=== PATIENT | female | born 1995 | race Caucasian/White ===

== ENCOUNTER 2020-11-30 07:35 | Outpatient (CLI) | payer OTHER, SELFPAY ==
--- NOTE | ~2020-11-30 | US_ITS ---
EXAMINATION: US abdomen complete EXAM DATE: 11/30/2020 08:16 INDICATION: R10.9 - Unspecified abdominal pain, diarrhea. TECHNIQUE: Multiple grayscale and Doppler images of the complete abdomen were obtained (by a technolo gist who performed the scan) and subsequently reviewed. There is no prior study for comparison. FINDINGS: The abdominal aorta is normal in caliber. Visualized portion IVC is patent. The pancreatic head a nd body are normal in appearance. The pancreatic tail is not visualized. The liver has normal echogenicity and contour. There are no focal liver lesions identified. There is no evidence of intrahepatic biliary duct dilation. Portal venous flow was seen in the hepatopedal , normal direction and has normal Doppler waveform. Common bile duct measures 4 mm, which is normal. The gallbladder wall is normal in thickness, with ex pected amount of distention. No sonographic evidence of pericholecystic fluid. There is no cholelit hiases. Technologist performing exam reports patient did not demonstrate sonographic Regan's sign. Please note that this sign is less reliable in patients who have received pain medication. Right kidney: There is normal contour and echogenicity. It measures 11.0 x 4.1 x 4.2 centimeters. There are no focal renal lesions identified. There is no hydronephrosis. Left kidney: There is normal contour and echogenicity. It measures 12.0 x 5.0 x 4.6 centimeters. T here are no focal renal lesions identified. There is no hydronephrosis. The spleen measures 11.1 centimeters and is morphologically normal. IMPRESSION: 1. Unremarkable complete abdominal ultrasound exam. Reviewed, dictated and finalized at location A. E DRIVER COIN MACHINES
[2020-11-30 07:54] LABS: Basophils Absolute Auto 0.1 K/mm3 (0.0-0.1); Basophils Percent Auto 1.2 % (0.2-1.2); Eosinophils Absolute Auto 0.2 K/mm3 (0-0.3); Eosinophils Percent Auto 3.8 % (0-4.4); Hematocrit 39.8 % (37.0-47.0); Hemoglobin 13.6 g/dL (12.0-15.0); Immature Granulocyte Absolute 0.01 K/mm3 (0.00-0.031); Immature Granulocyte Percent A 0.2 % (0-0.5); Lymphocytes Absolute Auto 1.84 K/mm3 (0.9-3.2); Lymphocytes Percent Auto 36.4 % (18.3-44.2); Mean Corpuscular HGB Conc 34.2 g/dl (32-36); Mean Corpuscular Hemoglobin 30.7 pg (26-34); Mean Corpuscular Volume 89.8 fl (80-100); Mean Platelet Volume 10.9 fl (7.4-10.4); Monocytes Absolute Auto 0.5 K/mm3 (0.1-0.6); Monocytes Percent Auto 9.5 % (2.6-8.5); Neutrophils Absolute Auto 2.5 K/mm3 (1.3-6.7); Neutrophils Percent Auto 48.9 % (45.5-73.1); Platelet Count Result 204 k/mm3 (150-375); Red Blood Count 4.43 M/mm3 (4.2-5.4); Red Cell Distribution Width 12.6 % (11.5-14.5); White Blood Count 5.1 K/mm3 (4.5-10.0)
== END 2020-11-30 07:36 | disposition home or self-care (01) ==
PROVIDERS: PCP Family Medicine; Visit Provider Nurse Practitioner Family
DX: R10.9 Unspecified abdominal pain (principal); R11.0 Nausea; R19.7 Diarrhea, unspecified
CPT/HCPCS: 36415; 76700; 85025

== ENCOUNTER 2023-06-17 22:56 | Emergency (ER) | payer BC, SELFPAY ==
--- NOTE | ~2023-06-17 | XR_ITS ---
XR elbow RT min 3V DATE: 06/18/2023 02:47 INDICATION: Postoperative reduction TECHNIQUE: 3 views COMPARISON: 06/17/2023 pre-reduction right elbow FINDINGS: There is reduction of posterior dislocation at the elbow joint. No fracture or dislocation is evident. There is elevation of the posterior fat pads consistent with joint effusion. IMPRESSION: Reduction of posterior dislocation Elbow joint effusion Reviewed, dictated and finalized at location A.
--- NOTE | ~2023-06-17 | XR_ITS ---
XR elbow RT 2V DATE: 06/17/2023 23:56 INDICATION: Fall. Elbow swelling, deformity TECHNIQUE: AP and lateral views COMPARISON: None FINDINGS: There is posterior dislocation of the elbow joint. There is elevation of the anterior and p osterior fat pads consistent with joint effusion. No apparent fracture is evident. IMPRESSION: Posterior elbow joint dislocation and elbow joint effusion Reviewed, dictated and finalized at location A.
[2023-06-17 23:01] VITALS: BP 123/94; PULSE 97; RESP 17; TEMP 36.9; O2SAT 97
[2023-06-18] VITALS (19 sets, daily range): BP systolic 102–131; BP diastolic 74–86; PULSE 79–100; RESP 8–20; O2SAT 95–100
[2023-06-18] MEDS: ONDANSETRON INJ 4 MG/2 ML VIAL IV PUSH (01:08)
[2023-06-18] MEDS: HYDROmorphone HCL INJ (*CRX) 1 MG/ML SYR IV PUSH (01:09)
--- NOTE | 2023-06-18 01:24 | ED.UPPEXIN ---
HPI - Extremity Injury (Upper) General Chief Complaint: Extremity Injury, Upper <ORQUIDEA Obrien Last Filed: 06/18/23 03:43> Stated Complaint: R elbow pain d/t fall <ORQUIDEA Obrien Last Filed: 06/18/23 03:43> Time Seen by Provider: 06/18/23 00:39 <ORQUIDEA Obrien Last Filed: 06/18/23 03:43> Source: patient <ORQUIDEA Obrien Last Filed: 06/18/23 03:43> Mode of arrival: ambulatory <ORQUIDEA Obrien Last Filed: 06/18/23 03:43> Limitations: no limitations <ORQUIDEA Obrien Last Filed: 06/18/23 03:43> History of Present Illness HPI narrative: Patient is a 28-year-old female who presents to the ED with report of right elbow pain. Patient reports she tripped and fell in her friend's yard this evening and landed with her right arm outstretched. She has had a few drinks tonight. She complains of pain to her right elbow. Unable to move elbow. Denies any numbness or tingling. No wrist or shoulder pain. Patient did not hit her head or lose consciousness. 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 <ORQUIDEA Obrien Last Filed: 06/18/23 03:43> Related Data Home Medications: Home Medications Medication Instructions Recorded Confirmed cetirizine 10 mg capsule (Zyrtec) 10 mg PO DAILY PRN 05/03/23 05/03/23 <ORQUIDEA Obrien Last Filed: 06/18/23 03:43> Allergies/Adverse Reactions: Allergies Allergy/AdvReac Type Severity Reaction Status Date / Time amoxicillin Allergy Mild Rash Verified 05/03/23 09:09 cefuroxime Allergy Mild Rash Verified 05/03/23 09:09 Penicillins Allergy Mild Rash Verified 05/03/23 09:09 <Toyin Cody PA-C - Last Filed: 06/18/23 03:43> Review of Systems Review of Systems: CONSTITUTIONAL: Denies fever, chills, or sweats. MUSCULOSKELETAL: See HPI. NEUROLOGIC: Denies HI, LOC, tingling, numbness, or weakness. <Toyin Cody PA-C - Last Filed: 06/18/23 03:43> All systems reviewed & are unremarkable except as noted in HPI and below <Toyin Cody PA-C - Last Filed: 06/18/23 03:43> [facility] Past Medical History Medical History: Medical History Anxiety BMI 26.0-26.9,adult BMI 30.0-30.9,adult COVID-19 DVT (deep vein thrombosis) in (03/07/23) Encounter for screening examination for sexually transmitted disease Pulmonary emboli (03/07/23) <Toyin Cody PA-C - Last Filed: 06/18/23 03:43> Surgical History Surgical History: Surgical History History of placement of ear tubes History of tonsillectomy (09/21/18) History of wisdom tooth extraction <Toyin Cody PA-C - Last Filed: 06/18/23 03:43> Family History Family History: Family History Father History of Holter monitoring Heart disease Mother No problems noted. Sibling No problems noted. Other Diabetes mellitus paternal aunt Breast cancer paternal aunt Grandparent Malignant neoplasm of lung paternal grandfather paternal grandmother Congestive heart failure maternal grandfather <Toyin Cody PA-C - Last Filed: 06/18/23 03:43> Social History Social History: Social History Smoking status: Never smoker Second hand tobacco smoke exposure: No Alcohol intake: current Drinks per week: 2 Alcohol use details: 6 per month Substance use: never Substance use type: does not use Living arrangements: other Additional living arrangements comments: single Occupation/Education: occupation Additional occupation/education comments: [employer]
[2023-06-18] MEDS: PROPOFOL IV EMULSION 200 MG/20 ML VIAL 100 MG IV PUSH (02:05)
[2023-06-18] MEDS: SODIUM CHLORIDE 0.9% IV 1,000 ML 999 ML (02:23)
[2023-06-18] MEDS: ACETAMINOPHEN 500 MG TABLET 1000 MG PO (03:30)
[2023-06-18] MEDS: oxyCODONE HCL (*CRX) 5 MG TAB IR PO (03:31)
== END 2023-06-18 03:45 | disposition home or self-care (01) ==
PROVIDERS: Emergency Provider Physician Assistant; PCP Family Medicine
DX: S53.104A Unspecified dislocation of right ulnohumeral joint, initial encounter (principal); S52.124A Nondisplaced fracture of head of right radius, initial encounter for closed fracture; F41.9 Anxiety disorder, unspecified; W01.0XXA Fall on same level from slipping, tripping and stumbling without subsequent striking against object, initial encounter
CPT/HCPCS: 24600; 73070; 73080; 96374; 96375; 99285; A4565; A9270; J1170; J2405; J2704; J7030

== ENCOUNTER 2023-07-18 15:45 | Outpatient (CLI) | payer BC, SELFPAY ==
[2023-07-18 16:10] LABS: Basophils Percent Auto 0.2 % (0.2-1.2); Hematocrit 44.4 % (37.0-47.0); Hemoglobin 14.7 g/dL (12.0-15.0); Immature Granulocyte Absolute 0.02 K/mm3 (0.00-0.031); Immature Granulocyte Percent A 0.2 % (0-0.5); Lymphocytes Absolute Auto 1.23 K/mm3 (0.9-3.2); Lymphocytes Percent Auto 14.9 % (18.3-44.2); Mean Corpuscular HGB Conc 33.1 g/dl (32-36); Mean Corpuscular Hemoglobin 30.4 pg (26-34); Mean Corpuscular Volume 91.7 fl (80-100); Mean Platelet Volume 10.5 fl (7.4-10.4); Monocytes Absolute Auto 0.3 K/mm3 (0.1-0.6); Neutrophils Absolute Auto 6.7 K/mm3 (1.3-6.7); Neutrophils Percent Auto 81.7 % (45.5-73.1); Platelet Count Result 245 k/mm3 (150-375); Red Blood Count 4.84 M/mm3 (4.2-5.4); Red Cell Distribution Width 12.5 % (11.5-14.5); White Blood Count 8.3 K/mm3 (4.5-10.0)
[2023-07-18 17:48] LABS: Alanine Aminotransferase 27 U/L (6-35); Albumin Level 4.8 g/dL (3.5-5.1); Alkaline Phosphatase 57 U/L (38-126); Anion Gap 11 mmol/L (8-16); Aspartate Amino Transferase 26 U/L (14-36); Bilirubin,Total 0.4 mg/dL (0.2-1.3); Blood Urea Nitrogen 14 mg/dL (7-17); Calcium 8.9 mg/dL (8.4-10.2); Carbon Dioxide 25 mmol/L (22-30); Chloride 103 mmol/L (98-107); Estimated Glomerular Filt Rate > 60; Glucose 119 mg/dL (65-110); Potassium 3.8 mmol/L (3.4-5.0); Sodium 139 mmol/L (137-145)
[2023-07-21 18:51] LABS: Anti-Thrombin III Antigen 94 % normal (80-120)
[2023-07-23 14:43] LABS: Anti Cardio Antibody IgM 3.8 MPL-U/mL (<20.0); Anti Cardiolipin Antibody IgA <2.0 APL-U/mL (<20.0); Anti Cardiolipin Antibody IgG <2.0 GPL-U/mL (<20.0)
[2023-07-25 15:39] LABS: Lupus dRVVT Confirmation Negative (Negative); Lupus dRVVT Screen 50 sec (<=45); PTT-LA Screen 40 sec (<=40)
== END 2023-07-18 15:46 | disposition home or self-care (01) ==
LOC: ANHLAB 15:47
PROVIDERS: PCP Family Medicine; Visit Provider Internal Medicine Hematology & Oncology
DX: D68.59 Other primary thrombophilia (principal)
CPT/HCPCS: 36415; 80053; 81240; 85025; 85301; 85597; 85613; 85730; 86146; 86147

== ENCOUNTER 2023-08-14 15:31 | Outpatient (CLI) | payer BC, SELFPAY ==
--- NOTE | ~2023-08-14 | US_ITS ---
EXAMINATION: US venous doppler [facility] DATE: 08/14/2023 17:49 INDICATION: Left lower limb deep venous thrombosis TECHNIQUE: Grayscale ultrasound images without and with compression and Doppler ultrasound images of the left lower extremity veins were obtained. COMPARISON: None. FINDINGS: The visualized portions of left common femoral vein, profunda (deep) femoral vein, femoral vein, popl iteal vein, peroneal veins, posterior tibial veins, gastrocnemius vein and greater saphenous vein out flow are patent. IMPRESSION: 1. No deep venous thrombosis in the left lower limb. Reviewed, dictated and finalized at location A. MS COORDINATOR
== END 2023-08-14 15:32 | disposition home or self-care (01) ==
PROVIDERS: PCP Family Medicine; Visit Provider Internal Medicine Hematology & Oncology
DX: I82.4Y2 Acute embolism and thrombosis of unspecified deep veins of left proximal lower extremity (principal)
CPT/HCPCS: 93971

== ENCOUNTER 2023-11-20 19:43 | Emergency (ER) | payer BC, SELFPAY ==
--- NOTE | ~2023-11-20 | XR_ITS ---
EXAMINATION: XR chest 1V portable Exam Date/Time: 11/20/2023 21:20 FLOOR WAXER HISTORY: SOB, HYPERVENTILATING X 2 HOURS SPACE CONTROL SUPERVISOR Comparison: 07/12/2017. RESULT: Lines, tubes, and devices: None. Lungs and pleura: Clear. Cardiomediastinal silhouette: Stable. Other: No acute osseous or upper abdominal finding. IMPRESSION: No acute cardiopulmonary process. Reviewed, dictated and finalized at location K. R WAXER
[2023-11-20 20:08] VITALS: BP 118/63; PULSE 83; RESP 26; TEMP 36.9; O2SAT 100
--- NOTE | 2023-11-20 21:00 | ECG_ITS ---
Measurements Intervals [place] Rate: 88 P: 47 RI: 194 QRS: 3 QRSD: 82 T: 30 QT: 376 QTc: 456 Interpretive Statements SINUS RHYTHM LOW QRS VOLTAGE IN PRECORDIAL LEADS [QRS DEFLECTION < 1.0 mV IN CHEST LEADS] NO PREVIOUS ECG AVAILABLE FOR COMPARISON Electronically Signed On 11-21-2023 15:20:15 DRY MOP MAKER by Brandi Elliott M.D.
--- NOTE | 2023-11-20 21:06 | ED.ANXIETY ---
HPI - Anxiety General Chief Complaint: Anxiety Stated Complaint: anxiety/syncopal episode Time Seen by Provider: 11/20/23 20:41 History of Present Illness HPI narrative: 28-year-old female presents to the emergency department for evaluation of anxiety. Patient does admit to having 5- 6 beers over a 6 hour period today. Patient states she does have history of anxiety but has never been treated for anxiety. Patient denies any homicidal suicidal thoughts. Patient declines any marijuana use Related Data Home Medications Medication Instructions Recorded Confirmed cetirizine 10 mg capsule (Zyrtec) 10 mg PO DAILY PRN 05/03/23 08/16/23 Allergies Allergy/AdvReac Type Severity Reaction Status Date / Time amoxicillin Allergy Mild Rash Verified 08/16/23 09:33 cefuroxime Allergy Mild Rash Verified 08/16/23 09:33 Penicillins Allergy Mild Rash Verified 08/16/23 09:33 Review of Systems Review of Systems: All systems reviewed & are unremarkable except as noted in HPI and below PMFSH Past Medical History Medical History Anxiety BMI 26.0-26.9,adult BMI 30.0-30.9,adult COVID-19 DVT (deep vein thrombosis) in (03/07/23) Encounter for screening examination for sexually transmitted disease Pulmonary emboli (03/07/23) Surgical History Surgical History History of placement of ear tubes History of tonsillectomy (09/21/18) History of wisdom tooth extraction Family History Family History Father History of Holter monitoring Heart disease Mother No problems noted. Sibling No problems noted. Other Diabetes mellitus paternal aunt Breast cancer paternal aunt Grandparent Malignant neoplasm of lung paternal grandfather paternal grandmother Congestive heart failure maternal grandfather Social History Social History (Updated 08/16/23 @ 09:38 by MARTINE Trisatn) Smoking status: Never smoker Second hand tobacco smoke exposure: No Alcohol intake: current Drinks per week: 2 Alcohol use details: 6 per month Substance use: never Substance use type: does not use Lack of Transportation: No Lack of Food: Never True Current Housing: I Have Housing Concerned About Future Housing: No Difficulty Paying Gas/Electric Bills: No Difficulty Paying for Meds: YES Currently Unemployed: No Education: Bachelor's Degree Difficulty w/ Childcare or Family Care: No Living arrangements: other Additional living arrangements comments: single Occupation/Education: occupation 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 HEAD: normocephalic, atraumatic. EYES: PERRLA/EOMI, conjunctivae clear. NOSE: Normal no drainage EARS:TMS clear with good light reflex. THROAT: Pharynx clear, no exudate. NECK: Supple. No adenopathy, no masses. RESPIRATORY: Airway patent, respirations nonlabored. Clear to auscultation bilaterally, no rales, rhonchi, wheezing. CARDIOVASCULAR: Regular rate and rhythm without murmurs rubs or gallops. ABDOMINAL: Soft, nontender, nondistended, normal bowel sounds MUSCULOSKELETAL: Moves all extremities. Strength/ROM intact, No edema, No calf tenderness. NEURO: Alert. Cranial nerves II through XII intact. Good gait. Good coordination SKIN: Warm, dry. Normal Color PSYCHIATRIC: Very anxious affect upon arrival but did improve after treatment with Ativan Course Course Emergency Course: 28-year-old female presenting ED for evaluation of a panic attack. Chest x-ray showed no acute cardiopulmonary abnormality, patient was negative
[2023-11-20] MEDS: LORazepam (*CRX) 1 MG TABLET 2 MG PO (21:38)
[2023-11-20 22:22] LABS: Influenza A QL RT-PCR Negative (Negative); Influenza B QL RT-PCR Negative (Negative); RSV RNA, RT-PCR Negative (Negative); SARS-CoV-2 RNA PCR Negative (Negative)
[2023-11-20 22:52] VITALS: BP 120/83; PULSE 78; RESP 18; TEMP 36.8; O2SAT 100
== END 2023-11-20 22:54 | disposition home or self-care (01) ==
PROVIDERS: Emergency Provider Emergency Medicine; PCP Family Medicine
DX: F41.9 Anxiety disorder, unspecified (principal); Z11.52 Encounter for screening for COVID-19; Z86.16 Personal history of COVID-19; Z86.718 Personal history of other venous thrombosis and embolism; Z86.711 Personal history of pulmonary embolism
CPT/HCPCS: 71045; 87637; 93005; 99283; A9270

== ENCOUNTER 2025-05-14 10:02 | Emergency (ER) | payer BC, SELFPAY ==
--- NOTE | ~2025-05-14 | XR_ITS ---
Exam: Chest x-ray 2 views Clinical history: Chest tightness. History of pulmonary embolism TECHNIQUE: Frontal and lateral images of the chest were obtained. COMPARISON: Chest x-ray 11/20/2023 FINDINGS: Heart is not enlarged. No pneumothorax. No pleural effusion. No free air under the diaphragm. No foca l pulmonary consolidation. There is an azygos lobe. IMPRESSION: 1. No acute pulmonary process identified. Reviewed, dictated and finalized at location A.
--- NOTE | 2025-05-14 10:04 | ECG_ITS ---
Test Date: 2025-05-14 10:16:01 Measurements Intervals [place] Rate: 72 P: 48 WV: 173 QRS: -14 QRSD: 82 T: 21 QT: 377 QTc: 413 Interpretive Statements SINUS RHYTHM LOW QRS VOLTAGE IN PRECORDIAL LEADS BORDERLINE T WAVE ABNORMALITY- INFERIOR LEADS BASELINE ARTIFACT- I, II, AVR, AVL, AVF, V1-V6 BORDERLINE ECG No previous ECG available for comparison Electronically Signed On 05-14-2025 10:18:50 CDT by Waylon Bingham D.O.
[2025-05-14 10:11] VITALS: BP 110/81; PULSE 79; RESP 18; TEMP 36.6; O2SAT 100
--- OUTSIDE RECORDS SUMMARY | 2025-05-14 10:14 | XMS_ITS | Clinical Summary ---
Author Organization [facility] Address [address] [place] [address] Care Team Providers Care Pricing Analyst Name Role Phone Lalo Ulloa MD Primary Care Provider [phone] Allergies Active Allergy Reactions Criticality Noted Date Comments Penicillins Rash Low 06/07/2017 Medications citalopram (CeleXA) 10 mg tablet Take 10 mg by mouth daily. Active apixaban (Eliquis) 5 mg tablet Take 5 mg by mouth 2 times daily. 03/07/2023 Active norethindrone, Contraceptive, 0.35 mg Tablet 07/24/2023 Acti ve Active Problems Problem Noted Date Diagnosed Date Hypercoagulable state 06/07/2017 Family History Medical History Relation Name Comments Healthy Brother 1 Healthy Brother 2 Diabetes Father Heart Disease Mother Relation Name Status Comments Brother 1 Alive Brother 2 Alive Father Alive Mother Alive Social History Tobacco Use Types Packs/Day Years Used Date Smoking Tobacco: Never Tobacco Cessation:Counseling Given: Not Answered Alcohol Use Standard Drinks/Week Comments No 0 (1 standard drink = 0.6 oz pur e alcohol) Comments No Sex and Gender Information Value Date Recorded Sex Assigned at Not on file Legal Sex Female 9:29 AM CDT Gender Identity Not on file Sexual Orientation Not on file Last Filed Vital Signs Vital Sign Reading Time Taken Comments Blood Pressure 127/79 11/23/2023 3:45 PM HEALTH CARE SPECIALIST Pulse 100 08/22/2023 2:31 PM HEALTH CARE SPECIALIST Temperature 35.8 C (96.5 F) 11/23/2023 3:45 PM HEALTH CARE SPECIALIST Respiratory Rate 14 11/23/2023 3:45 PM HEALTH CARE SPECIALIST Oxygen Saturation 97% 11/23/2023 3:45 PM HEALTH CARE SPECIALIST Inhaled Oxygen Concentration - - Weight 98 kg (216 lb) 11/23/2023 3:45 PM HEALTH CARE SPECIALIST Height 170.2 cm (5' 7) 05/01/2023 10:56 AM CDT Body Mass Index 33.83 05/01/2023 10:56 AM CDT Plan of Treatment Health Maintenance Due Date Last Done Comments HPV VACCINES (1 - 3-dose series) 01/29/2012 DTAP/TDAP/TD VACCINES (1 - Tdap) 01/29/2016 HEPATITIS B VACCINES (1 of 3 - 19+ 3-dose series) 01/01 CERVICAL CANCER SCREENING 2018 HPV/Cotest (-) 2018 PAP SMEAR 2018 INFLUENZA VACCINE (#1) 2025 [facility] Care Teams Pricing Analyst Relationship Specialty Start Date End Date Lalo Ulloa MD [address] [place] [address] PCP - General Family Practice 04/28/17
--- OUTSIDE RECORDS SUMMARY | 2025-05-14 10:14 | XMS_ITS | Clinical Summary ---
Author Organization [facility] Address [address] [place] [address] Care Team Providers Care Wind Turbine Design Engineer Name Role Phone Lalo Ulloa MD Primary Care Provider [phone] Source Comments [facility],non-owned Affiliates and Associated Physician Practices is amultiple site organization consisting of ambulatory clinics and hospital sitesin [place], [place], [place] and [place]. This disclosure is being madepursuant to the Care Everywhere program and may not contain all information available regarding this patient. Last updated 18.[facility] Allergies Active Allergy Reactions Criticality Noted Date Comments Penicillins Urticaria 11/09/2010 Medications * Be aware that medications may not be up to date on this document. Alwaysverify current medications with the patient. No known medications Active Problems Problem Noted Date Diagnosed Date Tinea corporis 11/10/2010 Overview (11/10/2010): Rash on chest appears like tinea corporis, also consider psoriasis, eczema, contact dermatitis Plan: Lotrimin cream to area BID- follow clinically for improvement Fatigue 11/10/2010 Overview (11/10/2010): Fatigue for last couple of days, with now associated ST DDx: hypothyroidism, mono, depression, DM, anemia, HIV (although very unlikely with no significant exposures) CBC normal, TSH normal, mono negative, blood sugar normal Peptic ulcer 11/09/2010 Overview (11/11/2010): Intermittent non-specific abdominal pain for 1 month in LUQ with nausea, zantac trial for 3 weeks has not improved symptoms. DDx for abdominal pain is extensive, for LUQ pain would consider GERD, PUD, spleen pathology, nephrolithiasis, referred pain (diaphragmatic, elsewhere), also consider IBS as IBD is unlikely. With normal labs several of these don't fit as well. Pt to undergo upper endoscopy to evaluate for PUD/gastritis. Plan: Monitor for pain Upper endoscopy this afternoon, NPO now Continue PPI for now to cover gastritis or PUD Resolved Problems Problem Noted Date Diagnosed Date Resolved Date Shortness of breath 11/10/2010 11/11/19 11 Overview (11/10/2010): Acute onset SOB which was primary complaint in ED, has since resolved. DDx: anxiety, panic attack, asthma, ingestion. No CXR in ED, exam normal so will consider obtaining chest x-ray if clinically warrants. Follow O2 sats and exam. Social History Tobacco Use Types Packs/Day Years Used Date Smoking Tobacco: Never Smokeless Tobacco: Never Alcohol Use Standard Drinks/Week Comments No 0 (1 standard drink = 0.6 oz pur e alcohol) Comments No Sex and Gender Information Value Date Recorded Sex Assigned at Not on file Legal Sex Female 9:55 AM INLAYER Gender Identity Not on file Sexual Orientation Not on file Last Filed Vital Signs Vital Sign Reading Time Taken Comments Blood Pressure 117/65 08/27/2012 3:12 AM INLAYER Pulse 84 08/27/2012 3:12 AM INLAYER Temperature 36.4 C (97.6 F) 08/27/2012 3:12 AM INLAYER Respiratory Rate 18 08/27/2012 3:12 AM INLAYER Oxygen Saturation 99% 08/22/2011 11: 15 AM INLAYER Inhaled Oxygen Concentration - - Weight 65.7 kg (144 lb 13.5 oz) 08/27/2012 3:12 AM INLAYER Height 168 cm (5' 6.14) 08/22/2011 8:55 AM INLAYER Body Mass Index - - Plan of Treatment Health Maintenance Due Date Last Done Comments HIV SCREENING 01/29/2012 HEPATITIS C SCREENING 01/24/2015 DTAP/TDAP/TD VACCINES (1 - Tdap) 01/29/2016 HEPATITIS B VACCINE (1 of 3 - 19+ 3-dose series) 01/29/2016 HPV VACCINE (1 - 3-dose SCDM series) 01/29/2024 COVID-19 VACCINE (1 - 2023-2 5 season) 2024 DEPRESSION SCREENING 10/02/2024 INFLUENZA VACCINE (#1) 2025 ZOSTER VACCINE (1 of 2) 2047 HIB VACCINE Aged Out No longer eligi ble based on patient's age to complete this topic MENINGOCOCCAL (Group B) VACC INE SHARED DECISION-MAKING Aged Out No longer eligibl e based on patient's age to complete this topic MENINGOCOCCAL GROUPS A/C/Y/W VACCINE Aged Out No longer eligible b ased on patient's age to complete this topic PNEUMOCOCCAL VACCINE Aged Out No long er eligible based on patient's age to complete this topic Insurance /[facility] Care Teams Wind Turbine Design Engineer Relationship Specialty Start Date End Date Lalo Ulloa MD [address] [place] [id number] PCP - General 11/10/10
[2025-05-14 10:15] VITALS: PULSE 77
[2025-05-14 10:25] LABS: Hematocrit 44.0 % (37.0-47.0); Hemoglobin 14.9 g/dL (12.0-15.0); Immature Granulocyte Percent A 0.2 % (0-0.5); Lymphocytes Absolute Auto 2.29 K/mm3 (0.9-3.2); Mean Corpuscular HGB Conc 33.9 g/dl (32-36); Mean Corpuscular Hemoglobin 30.9 pg (26-34); Mean Corpuscular Volume 91.3 fl (80-100); Nucleated Red Blood Cells Absolute Auto 0.000 K/mm3 (0.0-0.012); Nucleated Red Blood Cells Perc 0.0 % (0.0-0.2); Platelet Count Result 219 k/mm3 (150-375); Red Blood Count 4.82 M/mm3 (4.2-5.4); White Blood Count 5.7 K/mm3 (4.5-10.0)
[2025-05-14 10:31] LABS: BEDSIDEPREGUCG Negative (Negative)
[2025-05-14] MEDS: ASPIRIN 81 MG CHEWABLE TABLET 324 MG PO (10:32)
[2025-05-14 10:35] LABS: INR 1.0; Prothrombin Time 13.5 Seconds (11.1-14.7)
[2025-05-14 10:36] LABS: Partial Thromboplastin Time 30.5 Seconds (22.3-36.8)
--- OUTSIDE RECORDS SUMMARY | 2025-05-14 10:40 | XMS_ITS | Clinical Summary ---
Author Organization [facility] Address [address] [place] [address] Care Team Providers Care Scientific Informatics Project Leader Name Role Phone Lalo Ulloa MD Primary Care Provider [phone] Source Comments [facility],non-owned Affiliates and Associated Physician Practices is amultiple site organization consisting of ambulatory clinics and hospital sitesin [place], [place], [place] and [place]. This disclosure is being madepursuant to the Care Everywhere program and may not contain all information available regarding this patient. Last updated 18.[facility] Allergies Active Allergy Reactions Criticality Noted Date [...] on file Legal Sex Female 9:55 AM RHIA Gender Identity Not on file Sexual Orientation Not on file Last Filed Vital Signs Vital Sign Reading Time Taken Comments Blood Pressure 117/65 08/27/2012 3:12 AM RHIA Pulse 84 08/27/2012 3:12 AM RHIA Temperature 36.4 C (97.6 F) 08/27/2012 3:12 AM RHIA Respiratory Rate 18 08/27/2012 3:12 AM RHIA Oxygen Saturation 99% 08/22/2011 11: 15 AM RHIA Inhaled Oxygen Concentration - - Weight 65.7 kg (144 lb 13.5 oz) 08/27/2012 3:12 AM RHIA Height 168 cm (5' 6.14) 08/22/2011 8:55 AM RHIA Body Mass Index - - Plan of [...] patient's age to complete this topic Insurance /[facility] Care Teams Scientific Informatics Project Leader Relationship Specialty Start Date End Date Lalo Ulloa MD [address] [place] [phone] PCP - General 11/10/10
--- OUTSIDE RECORDS SUMMARY | 2025-05-14 10:40 | XMS_ITS | Clinical Summary ---
Author Organization [facility] Address [address] [place] [address] Care Team Providers Care Car Ferry Captain Name Role Phone Lalo Ulloa MD Primary Care Provider [phone] Allergies Active Allergy Reactions Criticality Noted Date [...] Comments Blood Pressure 127/79 11/23/2023 3:45 PM CHANGE ATTENDANT Pulse 100 08/22/2023 2:31 PM CHANGE ATTENDANT Temperature 35.8 C (96.5 F) 11/23/2023 3:45 PM CHANGE ATTENDANT Respiratory Rate 14 11/23/2023 3:45 PM CHANGE ATTENDANT Oxygen Saturation 97% 11/23/2023 3:45 PM CHANGE ATTENDANT Inhaled Oxygen Concentration - - Weight 98 kg (216 lb) 11/23/2023 3:45 PM CHANGE ATTENDANT Height 170.2 cm (5' 7) 05/01/2023 10:56 [...] SMEAR 2018 INFLUENZA VACCINE (#1) 2025 [facility] [employer] across [employer] Care Teams Car Ferry Captain Relationship Specialty Start Date End Date Lalo Ulloa MD [address] [place] [address] PCP - General Family Practice 04/28/17
[2025-05-14 10:55] LABS: Alanine Aminotransferase 15 U/L (6-35); Albumin Level 4.5 g/dL (3.5-5.1); Alkaline Phosphatase 48 U/L (38-126); Anion Gap 10 mmol/L (4-12); Aspartate Amino Transferase 23 U/L (14-36); Bilirubin,Total 0.9 mg/dL (0.2-1.3); Blood Urea Nitrogen 9 mg/dL (7-17); Calcium 9.0 mg/dL (8.4-10.2); Carbon Dioxide 22 mmol/L (22-30); Chloride 105 mmol/L (98-107); Estimated CRCL calculation 93 ml/min; Estimated Glomerular Filt Rate > 60; Glucose 88 mg/dL (65-110); Lipase 81 U/L (23-300); Potassium 4.2 mmol/L (3.4-5.0); Sodium 137 mmol/L (137-145); Total Protein 7.4 g/dL (6.3-8.2)
--- NOTE | 2025-05-14 11:01 | ED.CHESTPAIN ---
HPI - Chest Pain General Chief Complaint: Chest Pain Stated Complaint: chest tightness since yesterday Time Seen by Provider: 05/14/25 10:14 History of Present Illness HPI narrative: Patient is a 30-year-old female who presents to the ER with chest tightness that started yesterday. She reports she noticed some shortness of breath with ambulation. Patient was concerned because she has a history of a PE and was on Eliquis for 1 year. She denies any recent fevers, cough, or wheezing. Patient does endorse intermittent lightheadedness, nausea and lethargy yesterday and today. She also endorses intermittent right shoulder pain. At the time examination patient rates her pain at a 4 to 5/10. She also endorses mild lower extremity edema and states ?they have never been able to figure out why. Related Data Home Medications ?Medication ?Instructions ?Recorded ?Confirmed ?Last Taken ?Type cetirizine 10 mg capsule (Zyrtec) 10 mg PO DAILY PRN 05/03/23 05/06/25 Unknown History levonorgestrel (Mirena) 1 device intrauterine ONCE 05/06/25 05/06/25 Unknown History Allergies Allergy/AdvReac Type Severity Reaction Status Date / Time amoxicillin Allergy Mild Rash Verified 05/14/25 10:17 cefuroxime Allergy Mild Rash Verified 05/14/25 10:17 Penicillins Allergy Mild Rash Verified 05/14/25 10:17 Review of Systems Review of Systems: All systems reviewed & are unremarkable except as noted in HPI and below PMFSH Past Medical History Medical History Encounter for insertion of mirena IUD Abnormal vaginal bleeding PCOS (polycystic ovarian syndrome) Blood clot in vein Pulmonary emboli (03/07/23) 03/2023 DVT (deep vein thrombosis) in (03/07/23) Weight gain Encounter for screening examination for sexually transmitted disease Anxiety BMI 30.0-30.9,adult COVID-19 BMI 26.0-26.9,adult Surgical History Surgical History History of placement of ear tubes History of wisdom tooth extraction History of tonsillectomy (09/21/18) Family History Family History Father History of Holter monitoring Heart disease Mother No problems noted. Sibling No problems noted. Other Diabetes mellitus paternal aunt Breast cancer paternal aunt Grandparent Malignant neoplasm of lung paternal grandfather paternal grandmother Congestive heart failure maternal grandfather Social History Social History Smoking status: Never smoker Second hand tobacco smoke exposure: No Alcohol intake: former Drinks per week: 2 Alcohol use details: 6 per month Substance use: never Substance use type: does not use Do You Feel Safe in your Home?: Yes Lack of Transportation: No Lack of Food: Never True Current Housing: I Have Housing Concerned About Future Housing: No Difficulty Paying Gas/Electric Bills: No Difficulty Paying for Meds: YES Currently Unemployed: No Education: Bachelor's Degree Difficulty w/ Childcare or Family Care: No Living arrangements: with family Additional living arrangements comments: single Occupation/Education: occupation 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 HEAD: Normocephalic, atraumatic. NECK: Supple. No adenopathy, no masses. RESPIRATORY: Airway patent, respirations nonlabored. Clear to auscultation bilaterally, no rales, rhonchi, wheezing. CARDIOVASCULAR: Regular rate and rhythm without murmurs, rubs, or gallops. Peripheral pulses 2+ and equal bilaterally. ABDOMINAL: Soft, nontender, nondistended, no hepatosplenomegaly. Normoactive BS. MUSCULOSKELETAL: Moves all extremities. Strength/ROM intact without gross deformities. SKIN: Warm, dry, normal color. No rashes. NEURO: A&O X3. Speech clear. Cranial nerves II-XII intact. No ataxic movements. PSYCHIATRIC: Appropriate mood and affect. Normal interaction. Course Vital Signs Vital signs: Vital Signs Temperature 36.6 C 05/14/25 10:11 Pulse Rate 79 05/14/25 10:11 Respiratory Rate 18 05/14/25 10:11 Blood Pressure 110/81 05/14/25 10:11 Pulse Oximetry 100 08/13/25 10:11 Oxygen Delivery Room Air 05/14/25 10:11 Temperature 36.6 C 05/14/25 10:11 Pulse Rate 77 05/14/25 10:15 Respiratory Rate 18 05/14/25 10:11 Blood Pressure 110/81 05/14/25 10:11 Pulse Oximetry 100 05/14/25 10:11 Oxygen Delivery Room Air 05/14/25 10:11 MDM - Chest Pain MDM Narrative Medical decision making narrative: Patient is a 30-year-old female who presents to the ER with chest tightness that started yesterday. She reports she noticed some shortness of breath with ambulation. Patient was concerned because she has a history of a PE and was on Eliquis for 1 year. She denies any recent fevers, cough, or wheezing. Patient does endorse intermittent lightheadedness, nausea and lethargy yesterday and today. She also endorses intermittent right shoulder pain. At the time examination patient rates her pain at a 4 to 5/10. She also endorses mild lower extremity edema and states ?they have never been able to figure out why. Labs Ordered: CBC, CMP, troponin, proBNP, D-dimer, PTT, INR, TSH, lipase Imaging Ordered: Chest x-ray Medications Ordered: Aspirin 324 mg p.o. Results: Pt's chest x-ray indicates Heart is not enlarged. No pneumothorax. No pleural effusion. No free air under the diaphragm. No focal pulmonary consolidation. There is an azygos lobe. Diagnosis: atypical chest pain Risks: HEART score: low risk HEART Score for Major Cardiac Events from [email or web address] on 05/14/2025 All calculations should be rechecked by clinician prior to use RESULT SUMMARY: 1 points Low Score (0-3 points) Risk of MACE of 0.9-1.7%. INPUTS: History ?> 1 = Moderately suspicious EKG ?> 0 = Normal Age ?> 0 = <45 Risk factors ?> 0 = No known risk factors Initial troponin ?> 0 = <Normal limit Patient Education/Shared MDM: Results of lab work and imaging shared with patient. She was strongly advised to maintain hydration status upon discharge and follow-up with her PCP as soon as possible. She will not be discharged home with any new prescriptions. It was explained to pt that her HEART score is low and her labs do not indicate concern for a blood clot. Strict return precautions provided. Patient verbalized understanding and is in agreement with plan. Vital signs stable at time of discharge. All questions answered. Differential Diagnosis Differential diagnosis: Likely atypical chest pain, st elevation myocardial infarction, costochondritis and chest pain Lab Data Attestation: I reviewed the patient's lab results. 05/14/25 10:19 05/14/25 10:19 Labs: Lab Results 05/14/25 05/14/25 05/14/25 Range/Units 10:13 10:19 10:28 WBC 5.7 (4.5-10.0) K/mm3 RBC 4.82 (4.2-5.4) M/mm3 Hgb 14.9 (12.0-15.0) g/dL Hct 44.0 (37.0-47.0) % MCV 91.3 (80-100) fl MCH 30.9 (26-34) pg MCHC 33.9 (32-36) g/dl RDW 12.0 (11.5-14.5) % Plt Count 219 (150-375) k/mm3 MPV 10.0 (7.4-10.4) fl Immature Gran % (Auto) 0.2 (0-0.5) % Neut % (Auto) 49.8 (45.5-73.1) % Lymph % (Auto) 40.2 (18.3-44.2) % [place] % (Auto) 8.2 (2.6-8.5) % Eos % (Auto) 1.1 (0-4.4) % Baso % (Auto) 0.5 (0.2-1.2) % Lymph # (Auto) 2.29 (0.9-3.2) K/mm3 Marathon # (Auto) 0.5 (0.1-0.6) K/mm3 Eos # (Auto) 0.1 (0-0.3) K/mm3 Baso # (Auto) 0.0 (0.0-0.1) K/mm3 Abs Immat Gran (auto) 0.01 (0.00-0.031) K/mm3 Absolute Neuts (auto) 2.8 (1.3-6.7) K/mm3 Absolute Nucleated RBC 0.000 (0.0-0.012) K/mm3 Nucleated RBC % 0.0 (0.0-0.2) % PT 13.5 (11.1-14.7) Seconds INR 1.0 APTT 30.5 (22.3-36.8) Seconds D-Dimer < 0.27 (<0.48) ug/mL Sodium 137 (137-145) mmol/L Potassium 4.2 (3.4-5.0) mmol/L Chloride 105 (98-107) mmol/L Carbon Dioxide 22 (22-30) mmol/L Anion Gap 10 (4-12) mmol/L BUN 9 D (7-17) mg/dL Creatinine 0.76 (0.7-1.0) mg/dL Estim Creat Clear Calc 93 ml/min Estimated GFR > 60 (59 - ) Glucose 88 (65-110) mg/dL Calcium 9.0 (8.4-10.2) mg/dL Total Bilirubin 0.9 (0.2-1.3) mg/dL AST 23 (14-36) U/L ALT 15 (6-35) U/L Alkaline Phosphatase 48 (38-126) U/L Troponin I < 0.012 (0.000-0.034) ng/mL NT-Pro-B Natriuret Pep 23 (19.9-100) pg/mL Total Protein 7.4 (6.3-8.2) g/dL Albumin 4.5 (3.5-5.1) g/dL Lipase 81 (23-300) U/L TSH (Reflex) 2.380 (0.465-4.68) uIU/mL POC Urine HCG, Qual Negative (Negative) 05/14/25 Range/Units 13:15 WBC (4.5-10.0) K/mm3 RBC (4.2-5.4) M/mm3 Hgb (12.0-15.0) g/dL Hct (37.0-47.0) % MCV (80-100) fl MCH (26-34) pg MCHC (32-36) g/dl RDW (11.5-14.5) % Plt Count (150-375) k/mm3 MPV (7.4-10.4) fl Immature Gran % (Auto) (0-0.5) % Neut % (Auto) (45.5-73.1) % Lymph % (Auto) (18.3-44.2) % Marathon % (Auto) (2.6-8.5) % Eos % (Auto) (0-4.4) % Baso % (Auto) (0.2-1.2) % Lymph # (Auto) (0.9-3.2) K/mm3 Marathon # (Auto) (0.1-0.6) K/mm3 Eos # (Auto) (0-0.3) K/mm3 Baso # (Auto) (0.0-0.1) K/mm3 Abs Immat Gran (auto) (0.00-0.031) K/mm3 Absolute Neuts (auto) (1.3-6.7) K/mm3 Absolute Nucleated RBC (0.0-0.012) K/mm3 Nucleated RBC % (0.0-0.2) % PT (11.1-14.7) Seconds INR APTT (22.3-36.8) Seconds D-Dimer (<0.48) ug/mL Sodium (137-145) mmol/L Potassium (3.4-5.0) mmol/L Chloride (98-107) mmol/L Carbon Dioxide (22-30) mmol/L Anion Gap (4-12) mmol/L BUN (7-17) mg/dL Creatinine (0.7-1.0) mg/dL Estim Creat Clear Calc ml/min Estimated GFR (59 - ) Glucose (65-110) mg/dL Calcium (8.4-10.2) mg/dL Total Bilirubin (0.2-1.3) mg/dL AST (14-36) U/L ALT (6-35) U/L Alkaline Phosphatase (38-126) U/L Troponin I Pending (0.000-0.034) ng/mL NT-Pro-B Natriuret Pep (19.9-100) pg/mL Total Protein (6.3-8.2) g/dL Albumin (3.5-5.1) g/dL Lipase (23-300) U/L TSH (Reflex) (0.465-4.68) uIU/mL POC Urine HCG, Qual (Negative) Imaging Data Attestation: I personally reviewed and interpreted this imaging study as follows: Radiologist's impression: Impressions Chest X-Ray 05/14/25 10:52 IMPRESSION: 1. No acute pulmonary process identified. Discharge Plan Discharge Clinical Impression: Atypical chest pain, History of pulmonary embolus (PE), History of anxiety Patient Disposition: Home Condition: Stable Instructions: Antibiotic Form, Noncardiac Chest Pain (ED) Additional Instructions: Please return to the ER with any worsening symptoms. Follow-up with primary care provider as soon as possible. Take all medications as prescribed, including regularly scheduled medications. Patient Language: Kazakh Prescriptions: No Action Zyrtec 10 mg capsule 10 mg PO DAILY PRN Mirena 21 mcg/24hr (up to 8 yrs) 52 mg intrauterine device 1 device intrauterine ONCE Rx Instructions: as a single dose ondansetron 4 mg tablet,disintegrating See Rx Instructions .ROUTE .COMPLEX Qty: 5 0RF Dose Instruction: TAKE 1 TABLET BY MOUTH EVERY 8 HOURS Rx Instructions: TAKE 1 TABLET BY MOUTH EVERY 8 HOURS Wegovy 1 mg/0.5 mL pen injector 1 mg subcut Q7D Qty: 2 0RF Follow-up/Referrals: Lalo Ulloa MD [Primary Care Provider] - Time of Disposition: 13:37
[2025-05-14 11:02] LABS: Troponin I < 0.012 ng/mL (0.000-0.034)
[2025-05-14 12:17] LABS: NT Pro B Type Natriuretic Pept 23 pg/mL (19.9-100)
[2025-05-14 12:45] LABS: Thyroid Stimulating Hormone Reflex 2.380 uIU/mL (0.465-4.68)
[2025-05-14 13:47] LABS: Troponin I < 0.012 ng/mL (0.000-0.034)
== END 2025-05-14 14:27 | disposition home or self-care (01) ==
PROVIDERS: Emergency Medicine; Emergency Provider Registered Nurse; PCP Family Medicine
DX: R07.89 Other chest pain (principal); Z86.711 Personal history of pulmonary embolism; F41.9 Anxiety disorder, unspecified; E28.2 Polycystic ovarian syndrome; Z86.718 Personal history of other venous thrombosis and embolism; Z86.16 Personal history of COVID-19; Z97.5 Presence of (intrauterine) contraceptive device; Z79.899 Other long term (current) drug therapy; R06.02 Shortness of breath
CPT/HCPCS: 36415; 71046; 80053; 81025; 83690; 83880; 84443; 84484; 85025; 85380; 85610; 85730; 93005; 99284; A9270